=== PATIENT | female | born 1990 | race Caucasian/White ===

== ENCOUNTER 2016-10-07 20:27 | Emergency (ER) | payer BC, OTHER ==
[2016-10-07 20:36] VITALS: BP 127/75
--- NOTE | 2016-10-07 21:27 | RAD ---
INDICATION: Left anterior chest pain and shortness of breath COMPARISON: None TECHNIQUE: PA and lateral views of the chest were obtained. FINDINGS: The heart and mediastinum are normal in size and contour. The lungs are grossly clear. There is no evidence of large pleural effusion. Visualized bones are normal for the patient's age. There is no radiographic evidence of free air beneath the diaphragm IMPRESSION: No radiographic evidence of acute cardiopulmonary disease.
--- NOTE | 2016-10-07 22:05 | UC ---
Maikol Sood Benjamin, scribed for Lobo Del Toro MD on 10/07/16 at 2106 . Shortness of Breath HPI - HPI Summary HPI Summary: 25yo female c/o inability to take deep breath since 10/04/16, after doing a strenuous yoga pose (fish pose). Pt states that her left side feels tight, and she is only able to take short sallow breaths as a result. Pt denies any CP. No hx of fhx of blood clots. Symptoms worsens with lying down or exertion. - History of Current Complaint Chief Complaint: UCRespiratory Stated Complaint: TROUBLE TAKING A DEEP BREATH Time Seen by Provider: 10/07/16 20:46 Hx Obtained From: Patient Hx Last Menstrual Period: 3 WEEKS AGO Onset/Duration: Sudden Onset, Lasting Days - 3 days, Still Present Current Severity: Mild Dyspnea At: Exertion Aggrevating Factors: Recumbent Position Alleviating Factors: Upright Position Associated Signs & Symptoms: Negative: Cough (Productive), Cough (Nonproductive) , Cough (Bloody Sputum), Fever, Chills, Diaphoresis, Nasal Congestion - Allergy/Home Medications Allergies/Adverse Reactions: Allergies Allergy/AdvReac Type Severity Reaction Status Date / Time Coconut Oil Allergy Itching Verified 10/07/16 21:52 Home Medications: Home Medications Ferrous Sulfate [Iron (Ferrous Sulfate)] 10/07/16 [History] Loratadine [Claritin 10 MG CAP] 10 mg PO 10/07/16 [History] PMH/Surg Hx/FS Hx/Imm Hx Previously Healthy: No Respiratory History: Asthma - Surgical History Surgical History: Yes Surgery Procedure, Year, and Place: APPENDECTOMY 2009 - Family History Known Family History: Positive: Cardiac Disease, Diabetes Negative: Hypertension, Blood Disorder - Social History Occupation: Employed Full-time Lives: With Family Alcohol Use: Occasionally Substance Use Type: None Smoking Status (MU): Never Smoked Tobacco Review of Systems Constitutional: Negative Skin: Negative Eyes: Negative ENT: Negative Respiratory: Shortness Of Breath Cardiovascular: Negative Gastrointestinal: Negative Genitourinary: Negative Motor: Negative Neurovascular: Negative Musculoskeletal: Negative Neurological: Negative Psychological: Negative All Other Systems Reviewed And Are Negative: Yes Physical Exam Triage Information Reviewed: Yes Appearance: Well-Appearing, Well-Nourished, Pain Distress - mild Vital Signs: Initial Vital Signs Temp 98.5 F 10/07/16 20:32 Pulse 70 10/07/16 20:32 Resp 16 10/07/16 20:32 BP 127/75 10/07/16 20:32 Pulse Ox 100 10/07/16 20:32 Vital Signs Reviewed: Yes Eyes: Positive: Conjunctiva Clear ENT: Positive: Normal ENT inspection Neck: Positive: Supple, Nontender Respiratory: Positive: Chest non-tender, Lungs clear, Other: - mild SOB Cardiovascular: Positive: RRR, No Murmur, Pulses Normal Abdomen Description: Positive: Nontender, No Organomegaly, Soft. Negative: CVA Tenderness (R), CVA Tenderness (L) Bowel Sounds: Positive: Present Musculoskeletal: Positive: Strength Intact, ROM Intact Neurological: Positive: Alert, Muscle Tone Normal Psychological: Positive: Age Appropriate Behavior Skin: Negative: rashes Diagnostics - Radiology CXR Xray Interpretation: No Acute Changes Radiology Interpretation Completed By: Radiologist - EKG Cardiac Rate: Bradycardia - 53bpm Cardiac Rhythm: Sinus: Normal - Taken at 2059. Sinus oscar. RSR in v1 and v2. Shortness of Breath Dx - Course Course Of Treatment: MEDICATIONS REVIEWED. CXR/EKG NL IN CLINIC. PATIENT REMAINS SOB. POV/AMA TO ED FOR FURTHER EVALUATION TO INCLUDE PE R/O. DISCUSSED WITH DR BENITEZ. - Differential Dx/Diagnosis Provider Diagnoses: LEFT CHEST PAIN AND SOB - Physician Notification/Consults Discussed Patient Care With: Aryan Benitez Time Discussed With Above Provider: 21:31 Discharge - Discharge Plan Condition: Stable Disposition: TRANS HIGHER LVL OF CARE FAC Referrals: Mariam Olivia [Primary Care Provider] - The documentation as recorded by the Maikol gupta Benjamin accurately reflects the service I personally performed and the decisions made by me, Lobo Del Toro MD.
== END 2016-10-07 21:35 | disposition short-term general hospital (02) ==
LOC: UCEAST 20:27
DX: R07.89 Other chest pain (principal); R06.02 Shortness of breath
CPT/HCPCS: 71020; 93005; 99202; G0463

== ENCOUNTER 2016-10-07 21:45 | Emergency (ER) | payer BC ==
--- NOTE | 2016-10-08 | ED ---
HPI Chest Pain - HPI Summary HPI Summary: Patient presents with left pain under the rib cage since friday. Worse with breathing in, deep breaths and movement and better with rest. Denies travel, clotting disorder, malignancy, smoking history or leg pain. She has never had this before. Pain began during a yoga class. She denies SOB or difficulty breathing. Denies radiation of chest pain. Denies family history of clotting disorders or cardiac issues. She is otherwise healthy and has no other complaints. She was sent here by [facility] this afternoon for r/o blood clot. - History of Current Complaint Chief Complaint: EDShortnessOfBreath Time Seen by Provider: 10/07/16 23:24 Hx Obtained From: Patient Onset/Duration: Started Days Ago Timing: Constant Initial Severity: Moderate Current Severity: Moderate Pain Intensity: 2 Pain Scale Used: 0-10 Numeric Chest Pain Location: Left Lateral Chest Pain Radiates: No Character: Sharp/Stabbing Aggravating Factor(s): Exertion, Position, Deep Breaths Alleviating Factor(s): Rest, Position Associated Signs and Symptoms: Positive: Chest Pain - Risk Factors Pulmonary Embolism Risk Factors: Negative TAD Risk Factors: Negative - Allergy/Home Medications Allergies/Adverse Reactions: Allergies Allergy/AdvReac Type Severity Reaction Status Date / Time Coconut Oil Allergy Itching Verified 10/07/16 21:52 PMH/Surg Hx/FS Hx/Imm Hx Previously Healthy: Yes Endocrine/Hematology History: Denies: Hx Diabetes, Hx Thyroid Disease Cardiovascular History: Denies: Hx Hypertension Respiratory History: Reports: Hx Asthma - EXERCISE-INDUCED Denies: Hx Chronic Obstructive Pulmonary Disease (COPD) GI History: Denies: Hx Ulcer - Surgical History Surgery Procedure, Year, and Place: APPENDECTOMY 2009 - Immunization History Hx Pertussis Vaccination: No Immunizations Up to Date: Unable to Obtain/Confirm Infectious Disease History: No Infectious Disease History: Denies: Hx Clostridium Difficile, Hx Hepatitis, Hx Human Immunodeficiency Virus (HIV), Hx of Known/Suspected MRSA, Hx Shingles, Hx Tuberculosis, Hx Known/ Suspected VRE, Hx Known/Suspected VRSA, History Other Infectious Disease, Traveled Outside the [place] in Last 30 Days - Family History Known Family History: Positive: Cardiac Disease, Diabetes Negative: Hypertension, Blood Disorder - Social History Occupation: Employed Full-time Lives: With Family Alcohol Use: Occasionally Hx Substance Use: No Substance Use Type: Reports: None Hx Tobacco Use: No Smoking Status (MU): Never Smoked Tobacco Review of Systems Constitutional: Negative Eyes: Negative Positive: Chest Pain Respiratory: Negative Positive: no symptoms reported, see HPI Musculoskeletal: Negative Skin: Negative Neurological: Negative All Other Systems Reviewed And Are Negative: Yes Physical Exam Triage Information Reviewed: Yes Vital Signs On Initial Exam: Initial Vitals Temp Pulse Resp BP Pulse Ox 98.6 F 64 16 119/82 100 10/07/16 21:53 10/07/16 21:53 10/07/16 21:53 10/07/16 21:53 10/07/16 21:53 Vital Signs Reviewed: Yes Appearance: Positive: Well-Appearing, Well-Nourished Skin: Positive: Warm, Skin Color Reflects Adequate Perfusion Head/Face: Positive: Normal Head/Face Inspection, Temporal Artery Tenderness Eyes: Positive: EOMI, LETICIA, Conjunctiva Clear Neck: Positive: Supple, No Lymphadenopathy Respiratory/Lung Sounds: Positive: Clear to Auscultation, Breath Sounds Present Cardiovascular: Positive: Normal, RRR, Pulses are Symmetrical in both Upper and Lower Extremities Musculoskeletal: Positive: Normal, Strength/ROM Intact Neurological: Positive: Sensory/Motor Intact, Alert, Oriented to Person Place, Time Psychiatric: Positive: Normal AVPU Assessment: Alert - [place] Coma Scale Best Eye Response: 4 - Spontaneous Best Motor Response: 6 - Obeys Commands Best Verbal Response: 5 - Oriented Diagnostics - Vital Signs Vital Signs Temp Pulse Resp BP Pulse Ox 10/07/16 21:53 98.6 F 64 16 119/82 100 - Laboratory Result Diagrams: 10/07/16 23:45 10/07/16 23:45 Lab Statement: Any lab studies that have been ordered have been reviewed, and results considered in the medical decision making process. Chest Pain Course/Dx - Course Course Of Treatment: D-Dimer negative <200. Labs WNL. Treatment options discussed. Patient OK for discharge. Flexeril prescribed for muscular pain and tightness. Encouraged ibuprofen 600mg. - Chest Pain Differential Diagnosis/HQI/PQRI: Chest Wall, Pulmonary Edema, Pulmonary Embolism - Diagnoses Provider Diagnoses: Costochondral chest pain Discharge - Discharge Plan Condition: Stable Disposition: HOME Prescriptions: Cyclobenzaprine TAB* [Flexeril TAB*] 10 mg PO BID PRN #10 tab PRN Reason: Pain Patient Education Materials: Costochondritis (ED) Referrals: Mariam Olivia [Primary Care Provider] - Additional Instructions: Follow up as needed. Ibuprofen 60mmg three times daily I have give you a rx for a muscle relaxer - do not drive with this medication. Moist heat to the area.
[2016-10-08 00:04] LABS: Hematocrit 39 % (35-47); Hemoglobin 13.2 g/dl (12.0-16.0); Mean Corpuscular HGB Conc 34 g/dl (31-36); Mean Corpuscular Hemoglobin 29 pg (27-31); Mean Corpuscular Volume 85 fL (80-97); Mean Platelet Volume 8 um3 (7.4-10.4); Red Blood Count 4.58 10^6/ul (4.0-5.4); Red Cell Distribution Width 14 % (10.5-15); White Blood Count 6.8 10^3/ul (3.5-10.8)
[2016-10-08 00:21] LABS: Albumin 3.9 g/dL (3.2-5.2); BUN/Creatinine Ratio 13.7 (8-20); Calcium 9.1 mg/dL (8.6-10.3); EGFR African American 127.1 (>60); EGFR Non-African American 98.8 (>60); Potassium 3.3 mmol/L (3.5-5.0); Total Bilirubin 0.4 mg/dL (0.2-1.0); Total Protein 6.9 g/dL (6.4-8.9)
[2016-10-08] MEDS ORDERED: LORazepam TAB(*) 1 MG PO ONE (01:15)
[2016-10-08] MEDS ORDERED: Ibuprofen TAB* 600 MG PO ONE (01:15)
[2016-10-08] MEDS ORDERED: Cyclobenzaprine TAB* 10 MG PO ONE (01:40)
[2016-10-08 01:51] VITALS: BP 110/64
== END 2016-10-08 01:48 | disposition home or self-care (01) ==
LOC: ED 21:45
DX: J45.990 Exercise induced bronchospasm (principal)
CPT/HCPCS: 36415; 80053; 83605; 85025; 85379; 93005; 99283; A9270-GY